=== PATIENT | male | born 1985 | race Hispanic/Latino ===

== ENCOUNTER 2018-11-29 13:01 | Emergency (ER) | payer SELFPAY ==
[2018-11-29 13:30] VITALS: BP 134/85
--- NOTE | 2018-11-29 13:32 | Emergency Department Report ---
Blank Doc - Documentation Documentation: 33 y/o DELEON to occipital region that radiates to front and worsening. Pain dull and throbbing. associated with photophobia, nausea, vomiting, blurred vision. Pain is 7/10/ No DELEON history.
[2018-11-29] MEDS ORDERED: NACL 0.9% 1000 ML 1,000 ML IV ONE (14:21)
[2018-11-29] MEDS ORDERED: ZOFRAN IV ONE (14:21)
[2018-11-29] MEDS ORDERED: TYLENOL PO ONE (14:21)
--- NOTE | 2018-11-29 14:40 | Emergency Department Report ---
HPI <ZACARIAS GIBSON - Last Filed: 11/29/18 18:08> - HPI HPI: 33-year-old male presents to the emergency department from home with complaint of a generalized headache that has been going on since last night. He says that it is a "stress headache" as he says that it starts around the neck an d shoulders and has moved from back to front. He also feels like there is some pain behind his eyes but denies any blurry vision, only some photophobia. He's been having some episodes of nausea and vomiting. He denies any fever, slurred speech or any other neurological deficits. He did not take anything for her symptoms prior to arrival. He drove himself in to be seen today. Denies any past medical history. <PARAM HWANG - Last Filed: 11/30/18 10:18> - General Chief Complaint: Headache Time Seen by Provider: 11/29/18 13:30 ED Past Medical Hx <ZACARIAS GIBSON - Last Filed: 11/29/18 18:08> - Past Medical History Previous Medical History?: No - Surgical History Past Surgical History?: No - Social History Smoking Status: Current Every Day Smoker Substance Use Type: Marijuana <PARAM HWANG - Last Filed: 11/30/18 10:18> - Medications Home Medications: Home Medications Medication Instructions Recorded Confirmed Last Taken Type Acetaminophen [Acetaminophen TAB] 1,000 mg PO Q6HR PRN #30 tablet 11/29/18 Unknown Rx Metoclopramide [Reglan] 10 mg PO Q6H PRN #30 tablet 11/29/18 Unknown Rx diphenhydrAMINE [Benadryl CAP] 25 mg PO Q6HR PRN #30 capsule 11/29/18 Unknown Rx ED Review of Systems ROS: Stated complaint: HEADACHE Other details as noted in HPI <ZACARIAS GIBSON - Last Filed: 11/29/18 18:08> ROS: Stated complaint: HEADACHE Other details as noted in HPI Comment: All other systems reviewed and negative Constitutional: denies: chills, fever Eyes: other (photophobia). denies: eye pain, vision change ENT: denies: ear pain, throat pain Respiratory: denies: cough, shortness of breath Cardiovascular: denies: chest pain, palpitations Gastrointestinal: denies: abdominal pain, vomiting Genitourinary: denies: dysuria, discharge Musculoskeletal: denies: back pain, arthralgia Skin: denies: rash Neurological: headache. denies: weakness, numbness <PARAM HWANG - Last Filed: 11/30/18 10:18> Physical Exam - Physical Exam Vital Signs: Vital Signs 11/29/18 13:27 Temperature 97.7 F Pulse Rate 96 H Respiratory 16 Rate Blood Pressure 134/85 [Left] O2 Sat by Pulse 96 Oximetry <ZACARIAS GIBSON - Last Filed: 11/29/18 18:08> - Physical Exam Vital Signs: Vital Signs 11/29/18 13:27 Temperature 97.7 F Pulse Rate 96 H Respiratory 16 Rate Blood Pressure 134/85 [Left] O2 Sat by Pulse 96 Oximetry Physical Exam: GENERAL: The patient is well-developed well-nourished. HENT: Normocephalic. Atraumatic. Patient has moist mucous membranes. EYES: Extraocular motions are intact. Pupils equal reactive to light bilaterally. Patient has photophobia. No nystagmus. NECK: Supple. Trachea is midline. CHEST/LUNGS: Clear to auscultation. There is no respiratory distress noted. HEART/CARDIOVASCULAR: Regular. There is no tachycardia. There is no murmur. ABDOMEN: Abdomen is soft, nontender. Patient has normal bowel sounds. There is no abdominal distention. SKIN: Skin is warm and dry. NEURO: The patient is awake, alert, and oriented. The patient is cooperative. The patient has no focal neurologic deficits. The patient has normal speech. Cranial nerves II through XII grossly intact. MUSCULOSKELETAL: There is no tenderness or deformity. There is no limitation range of motion. There is no evidence of acute injury. <PARAM HWANG - Last Filed: 11/30/18 10:18> ED Course Vital Signs 11/29/18 13:27 Temperature 97.7 F Pulse Rate 96 H Respiratory 16 Rate Blood Pressure 134/85 [Left] O2 Sat by Pulse 96 Oximetry <ZACARIAS GIBSON - Last Filed: 11/29/18 18:08> Vital Signs 11/29/18 13:27 Temperature 97.7 F Pulse Rate 96 H Respiratory 16 Rate Blood Pressure 134/85 [Left] O2 Sat by Pulse 96 Oximetry <PARAM HWANG - Last Filed: 11/30/18 10:18> ED Medical Decision Making - Radiology Data Radiology results: report reviewed PROCEDURE: CT HEAD/BRAIN WO CON TECHNIQUE: CT images of the head were obtained without the use of IV contrast HISTORY: headache COMPARISONS: None available FINDINGS: No CT evidence of intracranial mass, hemorrhage, acute territorial infarction, or hydrocephalus. Intracranial arteries are symmetric in density. Calvarium is intact. There is right ethmoid sinus mucosal thickening. Mastoids are aerated. IMPRESSION: No CT evidence of acute abnormality. This document is electronically signed by Becky Williamson MD., Nov 29 2018 03:00:28 PM ET Transcribed By: [facility] Dictated By: BECKY WILLIAMSON M.D. Electronically Authenticated By: BECKY WILLIAMSON M.D. Signed Date/Time: 11/29/18 1502 - Medical Decision Making Patient presents with a headache and some photophobia. No focal, motor or sensory deficits and his cranial nerves are intact. CT scan of the head without contrast does not show any bleed, shift, mass, ischemia, or any other acute process. He was given multiple pain and nausea medications as well as some IV fluid resuscitation. He was reevaluated multiple times over multiple hours and eventually says that he is feeling greatly improved. There is no change in his mental status and does not appear to have any meningitic symptoms. Patient ambulated out of the emergency department upon discharge and appears stable. He was given referrals for primary care and encouraged to return to the emergency Department with any worsening of his symptoms or any acute distress. - Differential Diagnosis tension headache, migraine headache, subarachnoid hemorrhage <PARAM HWANG - Last Filed: 11/30/18 10:18> Critical care attestation.: If time is entered above; I have spent that time in minutes in the direct care of this critically ill patient, excluding procedure time. <ZACARIAS GIBSON - Last Filed: 11/29/18 18:08> Critical Care Time: No Critical care attestation.: If time is entered above; I have spent that time in minutes in the direct care of this critically ill patient, excluding procedure time. <PARAM HWANG - Last Filed: 11/30/18 10:18> ED Disposition Does the pt Need Aspirin: No <ZACARIAS GIBSON - Last Filed: 11/29/18 18:08> Is pt being admited?: No Time of Disposition: 17:10 <PARAM HWANG - Last Filed: 11/30/18 10:18> Clinical Impression: Headache Qualifiers: Headache type: unspecified Headache chronicity pattern: unspecified pattern Intractability: not intractable Qualified Code(s): R51 - Headache Disposition: TO HOME OR SELFCARE Condition: Stable Instructions: Acute Headache (ED) Additional Instructions: Please follow up with a primary care physician in the next few days. Return to the emergency Department with any worsening of your symptoms or any acute distress. Prescriptions: Acetaminophen [Acetaminophen TAB] 1,000 mg PO Q6HR PRN #30 tablet PRN Reason: Headache diphenhydrAMINE [Benadryl CAP] 25 mg PO Q6HR PRN #30 capsule PRN Reason: Headache Metoclopramide [Reglan] 10 mg PO Q6H PRN #30 tablet PRN Reason: Headache Referrals: SUSHIL BUSTOS MD [Staff Physician] - 3-5 Days [facility] [Outside] - 3-5 Days Forms: Work/School Release Form(ED)
--- NOTE | 2018-11-29 15:02 | Cat Scan Report ---
PROCEDURE: CT HEAD/BRAIN WO CON TECHNIQUE: CT images of the head were obtained without the use of IV contrast HISTORY: headache COMPARISONS: None available FINDINGS: No CT evidence of intracranial mass, hemorrhage, acute territorial infarction, or hydrocephalus. Intr acranial arteries are symmetric in density. Calvarium is intact. There is right ethmoid sinus mucosal thickening. Mastoids are aerated. IMPRESSION: No CT evidence of acute abnormality. This document is electronically signed by Becky Williamson MD., Nov 29 2018 03:00:28 PM ET
[2018-11-29] MEDS ORDERED: TORADOL IV ONE (15:12)
[2018-11-29] MEDS ORDERED: MORPHINE IV ONE (16:27)
[2018-11-29] MEDS ORDERED: REGLAN IV ONE (16:28)
== END 2018-11-29 18:25 | disposition home or self-care (01) ==
LOC: ED 13:01
DX: R51 Headache (principal); R11.2 Nausea with vomiting, unspecified; F17.200 Nicotine dependence, unspecified, uncomplicated; F12.10 Cannabis abuse, uncomplicated
CPT/HCPCS: 70450; 96361; 96374; 96375; 99283; J1885; J2270; J2405; J2765; J7030